=== PATIENT | female | born 1995 | race Caucasian/White ===

== ENCOUNTER 2020-12-14 10:31 | Outpatient (CLI) | payer OTHER, SELFPAY ==
--- NOTE | 2020-12-14 11:30 | NEURO_ITS ---
Impression: # Complains of left 4th and 5th finger numbness. # Mild evolving Carpal Tunnel Syndrome. # No ulnar neuropathy. # Normal needle/EMG exam. 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 Nerve Conduction Studies Anti Sensory Summary Table Stim Site NR Peak (ms) P-T Amp (?V) Site1 Site2 Delta-P (ms) Dist (cm) Juan Pablo (m/s) Left Median Anti Sensory (2-3nd Digit) Wrist 2.7 88.7 Wrist 2-3nd Digit 2.7 14.0 52 Wrist 2.8 92.4 Wrist 2-3nd Digit 2.7 14.0 52 Left Radial Anti Sensory (Base 1st Digit) Wrist 1.6 56.6 Wrist Base 1st Digit 1.6 0.0 Left Ulnar Anti Sensory (5th Digit) Wrist 2.7 83.1 Wrist 5th Digit 2.7 14.0 52 Motor Summary Table Stim Site NR Onset (ms) O-P Amp (mV) Site1 Site2 Delta-0 (ms) Dist (cm) Juan Pablo (m/s) Left Median Motor (Abd Poll Brev) Wrist 3.4 5.0 Elbow Wrist 4.4 26.0 59 Elbow 7.8 4.8 Left Ulnar Motor (Abd Dig Minimi) Wrist 2.3 8.3 A Elbow Wrist 4.3 27.0 63 A Elbow 6.6 8.0 F Wave Studies NR F-Lat (ms) L-R F-Lat (ms) Left Median (Mrkrs) (Abd Poll Brev) 26.17 Left Ulnar (Mrkrs) (Abd Dig Min) 25.56 EMG Side Muscle Nerve Root Ins Act Fibs Amp Dur Recrt Comment Left 1stDorInt Ulnar C8-T1 Nml Nml Nml Nml Nml Left Ext Indicis Radial (Post Int) C7-8 Nml Nml Nml Nml Nml Left Ext Digitorum Radial (Post Int) C7-8 Nml Nml Nml Nml Nml Left BrachioRad Radial C5-6 Nml Nml Nml Nml Nml Left PronatorTeres Median C6-7 Nml Nml Nml Nml Nml Left Abd Poll Brev Median C8-T1 Nml Nml Nml Nml Nml MTDD
== END 2020-12-14 10:32 | disposition home or self-care (01) ==
LOC: ANHNEURO 10:35
PROVIDERS: PCP Family Medicine; Visit Provider Family Medicine
DX: M54.2 Cervicalgia (principal); G56.00 Carpal tunnel syndrome, unspecified upper limb
CPT/HCPCS: 95886; 95909

== ENCOUNTER → 2021-02-02 11:10 | Outpatient (CLI) | payer OTHER, SELFPAY ==
--- NOTE | ~2021-02-02 | US_ITS ---
EXAMINATION: US right upper quadrant DATE: 02/02/2021 11:27 INDICATION: Generalized abdominal pain. Diarrhea. TECHNIQUE: Multiple grayscale and Doppler ultrasound images of the abdomen were obtained. COMPARISON: None FINDINGS: Abdominal aorta is normal in caliber. The visualized portions of the head, body, and tail o f the pancreas are normal. The liver is normal without focal lesion. No liver surface nodularity. The re is normal flow in main portal vein. The gallbladder is normal in size and contains a gallstone. No gallbladder wall thickening or sonographic Coon sign. The common duct is normal and measures 3 mm. IMPRESSION: 1. Cholelithiasis. No evidence of acute cholecystitis. Reviewed, dictated and finalized at location B.
== END ==
PROVIDERS: Visit Provider Nurse Practitioner Family
DX: R19.7 Diarrhea, unspecified (principal); R10.84 Generalized abdominal pain; K80.20 Calculus of gallbladder without cholecystitis without obstruction
CPT/HCPCS: 76705

== ENCOUNTER → 2021-02-16 08:42 | Outpatient (CLI) | payer OTHER, SELFPAY ==
--- NOTE | ~2021-02-16 | MR_ITS ---
EXAMINATION: MR cervical spine wo con EXAM DATE: 02/16/2021 09:50 INDICATION: Left-sided neck pain, left arm pain, cervical radiculopathy. TECHNIQUE: Multi-sequential, multiplanar MR images of the cervical spine were obtained without contra st. Axial T2, axial T2 MERGE sequence. Sagittal T1, T2, T2 fat saturation images also obtained. Th ere is no prior study for comparison. FINDINGS: Patient has Chiari I malformation with cerebellar tonsils measuring about 2 cm below the f oramen magnum. 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 Substantial dilatio n at the lowest imaged portion of the exam which is T6 level. The vertebral bodies are aligned in the AP dimension. Vertebral body and disc heights are well-mainta ined. There are no suspicious marrow signal abnormalities. Paraspinal soft tissue is unremarkable. Th ere is evidence of mild facet arthropathy but no central canal or neural foraminal stenosis. IMPRESSION: Chiari I malformation likely causing the severe cervicothoracic syringohydromyelia; neur osurgical consult and thoracic MRI without and with contrast would be appropriate. Reviewed, dictated and finalized at location B. IMPRESSION: Chiari I malformation likely causing the severe cervicothoracic sy ringohydromyelia; neurosurgical consult and thoracic MRI without and with contr ast would be appropriate.
== END ==
DX: M54.12 Radiculopathy, cervical region (principal); G93.5 Compression of brain
CPT/HCPCS: 72141

== ENCOUNTER 2021-02-26 08:49 | Outpatient (CLI) | payer OTHER, SELFPAY ==
--- NOTE | ~2021-02-26 | NM_ITS ---
EXAMINATION: NM hepatobiliary wo pharm DATE: 02/26/2021 12:54 INDICATION: Diarrhea. Generalized abdominal pain. COMPARISON: None. TECHNIQUE: 4.5 mCi Tc-99m mebrofenin (Choletec) was administered intravenously. Scintigraphic images of the abdomen were obtained for one hour. At the 1 hour time point, the patient drank 8 oz Ensure, and imaging was continued for 60 minutes. Gallbladder ejection fraction was calculated by the technol ogist. FINDINGS: There is normal clearance of radiotracer from the blood pool. There is homogeneous tracer u ptake by the liver. Activity progresses to the bowel and gallbladder. The gallbladder ejection fract ion (GBEF) is 36%. Note that with this technique, normal GBEF >= 33%. IMPRESSION: 1. Normal hepatobiliary scan. Reviewed, dictated and finalized at location A.
== END 2021-02-26 08:50 | disposition home or self-care (01) ==
LOC: ANHIMG 08:54
PROVIDERS: PCP Family Medicine; Visit Provider Nurse Practitioner Family
DX: R19.7 Diarrhea, unspecified (principal)
CPT/HCPCS: 78226; A9537

== ENCOUNTER 2021-08-13 08:00 | Outpatient (RCR) | payer OTHER, SELFPAY ==
--- NOTE | 2021-06-14 10:01 | PTOPEVAL ---
Thank you for referring Fatoumata Sorensen to [facility].? The patient is scheduled to be seen for therapy?2x/week for 6-8 weeks. Please review, sign, date and return this plan of care GOPI. I agree with and certify that the following plan of care is medically necessary. 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 She states that a 3-4 months ago an MRI was done with showed Chiari malformation and she was referred to neurosurgery. She states that since surgery the pain has not been bad but she is very stiff in her neck. She reports that she has almost turn her whole body to turn her head, has difficulty washing/brushing her hair, shaving and looking down. She also reports difficulty sleeping at night. She reports prior to surgery she did not have difficulty performing these activities. Pain Assessment Timing of Pain Assessment Timing of Pain Assessment Pre-Treatment Self Report Self Report Pain Level 0 Pain Score Pain Score 0: Self Report Additional Pain Score Comments Pt reports neck stiffness as 5 /10 Cervical and Lumbar ROM Cervical ROM Cervical Flexion (0-60) 25 Query Te
--- NOTE | 2021-07-09 12:28 | PEDREH ---
I agree with and certify that the above recommended change(s) to the plan of care are medically necessary. ? Referring Physician?Date Admitting Provider: Attending Provider: IGLESIA Lazcano Referring Provider: 07/09/21 PHYSICAL THERAPY PROGRESS REPORT Fatoumata Sorensen has completed a total number of 6 treatment sessions since initial evaluation following Chiari Malformation surgery. Summary of Progress: Fatoumata has demonstrated improvements in her cervical active and passive ROM since starting PT services but it continues to be limited in all directions. She reports that she is not yet able to work a full work day and even working half a day in the office causes her neck to feel sore, tired and some pain. She states that she is able to wash and brush her hair with less difficulty but does have difficulty looking down to shave her arm pits. She states that she is able to drive ~30 minutes without increased pain or soreness. Recommendations: Fatoumata would continue to benefit from skilled PT to address these deficits and assist her in improving her functional mobility. Thank you for referring Fatoumata Sorensen to [facility].? The patient is scheduled to be seen for therapy? 1x/week for 4-6 weeks.? Please review, sign, date and return this plan of care GOPI.
--- NOTE | 2021-08-09 08:54 | PCPTNOTE ---
Pt called and cancelled appointment for this date secondary to weather. Rescheduled to next week.
--- NOTE | 2021-08-13 08:57 | PCPTNOTE ---
Admitting Provider: Attending Provider: IGLESIA Lazcano Patient:Fatoumata Sorensen Date of :1995 08/13/21 PHYSICAL THERAPY DISCHARGE SUMMARY Fatoumata has been seen for 10 PT visits since initial evaluation. She has demonstrated significant improvements in her overall ROM and mobility since starting PT services. She states that she continues to have some stiffness in her neck when she first gets up in the morning and can tell her endurance is not as good as it was prior to surgery with work but overall she feels that she is 90% back to herself. She states that has gone back to the gym once but did not do anything with lifting weights and focused mostly on cardio. She states that she does feel some stretching at the incision site during cervical flexion but it does not cause any pain. She has reached her functional mobility and ROM goals and is being discharged this date with education in a home exercise program. She was invited to call with any questions/concerns. Thank you for referring this patient to [facility]. Please review, sign, date and return this discharge summary GOPI. I have been updated about the patient's current status and I agree with discharge from the above service at this time. Referring Physician Date
== END 2021-09-12 23:59 | disposition home or self-care (01) ==
LOC: ANHHIPT 08:00
PROVIDERS: PCP Family Medicine
DX: G93.5 Compression of brain (principal)
CPT/HCPCS: 97110; 97140; 97161